=== PATIENT | male | born 1950 | race Caucasian/White ===

== ENCOUNTER 2022-09-29 06:04 | Day surgery (SDC) | payer MEDICARE ==
[2022-09-29] MEDS ORDERED: Lactated Ringers 1,000 ML IV SCH (06:30)
[2022-09-29] MEDS ORDERED: Xylocaine-Mpf 2% 5 Ml Vial ONE (07:12)
[2022-09-29] MEDS ORDERED: DIPRIVAN 200 MG/20 ML IV ONE ×2 (07:12→07:50)
[2022-09-29] MEDS ORDERED: Versed 2 MG/2 ML Injection ONE (07:28)
[2022-09-29 10:08] VITALS: BP 166/88; PULSE 83; O2SAT 96
--- NOTE | 2022-09-29 11:10 | OP ---
SURGERY DATE/TIME: 09/29/2022 0742 PREOPERATIVE DIAGNOSIS: Positive Cologuard. POSTOPERATIVE DIAGNOSES: 1) Colon polyps x5. 2) Diffuse diverticulosis. PROCEDURE: Diagnostic colonoscopy. SURGEON: Rell Shannon M.D. ANESTHESIA: MAC by Mike Bean CRNA. ESTIMATED BLOOD LOSS: Minimal. SPECIMENS: There are five hot forceps polypectomies. DESCRIPTION OF PROCEDURE: After informed written consent was obtained, the patient was taken to the endoscopy suite. He was placed in left lateral decubitus position and anesthesia was titrated to desired level of consciousness. Digital rectal exam showed normal sphincter tone and no internal lesions. The scope was inserted into the rectum and sequentially the entire colonic mucosa was traversed. The level of cecum was reached and verified with direct visualization of the ileocecal valve. There were two sessile polyps in the proximal sigmoid colon near the splenic flexure which were grasped with forceps, cauterized and removed in their entirety. Those two were sent in separate containers in multiple pieces with entire removal of the lesion and good hemostasis following removal. Further down in the rectosigmoid area, there were three sessile polyps all of which likewise were grasped with forceps, cauterized and removed in their entirety. Retroflexion showed no internal lesions prior to withdrawal. The scope was removed and the patient was transferred to the recovery room in good condition.
== END 2022-09-29 09:05 | disposition home or self-care (01) ==
LOC: SDC 06:04
PROVIDERS: ATTEND Family Medicine
DX: D12.5 Benign neoplasm of sigmoid colon (principal); R19.5 Other fecal abnormalities; K57.30 Diverticulosis of large intestine without perforation or abscess without bleeding; K62.1 Rectal polyp
CPT/HCPCS: 99100; J2250; J2704